=== PATIENT | male | born 2000 | race Caucasian/White ===

== ENCOUNTER 2024-12-07 12:50 | Emergency (ER) | payer MEDICAID ==
[~2024-12-07] VITALS: Ht 170.2 cm; Wt 68.0 kg
[2024-12-07 12:57] VITALS: O2SAT 98
[2024-12-07 13:26] LABS: CLARITY URINE CLEAR (CLEAR); COLOR URINE DARK YELLOW (YELLOW); GLUCOSE URINE NEGATIVE (NEGATIVE); KETONES URINE 2+ (NEGATIVE); LEUKOCYTE ESTERASE URINE NEGATIVE (NEGATIVE); NITRITE URINE NEGATIVE (NEGATIVE); OCCULT BLOOD URINE NEGATIVE (NEGATIVE); PROTEIN URINE 2+ (NEGATIVE); SPECIFIC GRAVITY URINE 1.029 (1.005-1.030)
[2024-12-07 13:42] LABS: BACTERIA URINE NONE SEEN; MUCUS URINE 1+ /lpf (NONE/TRACE); RBC URINE 0-2 /hpf (0-2); SQUAMOUS EPITHELIAL CELL URINE RARE /lpf (RARE/1+); WBC URINE 0-2 /hpf (0-2); YEAST URINE NONE SEEN
[2024-12-07] MEDS: ONDANSETRON 4MG ODT PO ONE (14:09)
[2024-12-07 14:15] LABS: BASOPHILS % 0.3 % (0.0-2.0); EOSINOPHILS % 0.4 % (0.0-5.0); HEMATOCRIT. 50.2 % (42.0-52.0); HEMOGLOBIN. 17.4 g/dL (14.0-18.0); LYMPHOCYTES % 8.4 % (20.0-50.0); MEAN CORPUSCULAR HGB CONC 34.6 g/dL (31.0-37.0); MEAN CORPUSCULAR VOLUME 86.7 fL (80.0-94.0); MEAN PLATELET VOLUME 9.6 fl (7.4-10.4); MONOCYTES % 6.9 % (2.0-8.0); PLATELET 189 x1000/uL (130-400); RED BLOOD CELL COUNT 5.79 mill/uL (4.7-6.1); RED CELL DISTRIBUTION WIDTH 13.4 % (11.6-14.6); WHITE BLOOD COUNT 11.9 x1000/uL (4.5-11.0)
[2024-12-07 14:16] LABS: CHLORIDE 104 mEq/L (98-107); POTASSIUM 3.7 mEq/L (3.5-5.1); SODIUM 142 mEq/L (136-145)
[2024-12-07 14:17] LABS: CARBON DIOXIDE 29 mEq/L (21-32)
[2024-12-07 14:18] LABS: CALCIUM 10.3 mg/dL (8.7-10.4)
[2024-12-07 14:22] LABS: CREATININE 1.1 mg/dL (0.6-1.3); GLUCOSE 99 mg/dL (70-105)
[2024-12-07 14:23] LABS: UREA NITROGEN BLOOD 11 mg/dL (9-23)
[2024-12-07 14:24] LABS: ALANINE AMINOTRANSFERASE 20 IU/L (10-49); ALBUMIN 5.4 g/dL (3.2-4.8); ASPARTATE AMINOTRANSFERASE 19 IU/L (<34)
[2024-12-07 14:25] LABS: BILIRUBIN DIRECT 0.7 mg/dL (<=3.0); BILIRUBIN TOTAL 1.8 mg/dL (0.1-1.0); PROTEIN TOTAL 8.9 g/dL (6.0-8.3)
[2024-12-07] MEDS: SODIUM CHLORIDE 0.9% 500 ML IV ONE (14:43)
[2024-12-07] MEDS ORDERED: ONDA4TAB50 MT (17:55)
[2024-12-07 18:30] VITALS: BP 134/59; PULSE 88; RESP 18; TEMP 37.1; O2SAT 98
[2024-12-07 18:38] VITALS: TEMP 101
[2024-12-07] MEDS: ACETAMINOPHEN 325MG TABLET PO ONE (18:38)
== END 2024-12-07 19:07 | disposition home or self-care (01) ==
LOC: ER 12:50
DX: R11.2 Nausea with vomiting, unspecified (principal); R19.7 Diarrhea, unspecified; Z20.822 Contact with and (suspected) exposure to COVID-19
CPT/HCPCS: 99284; 96360; 76705; 96361; 87426; 80076; 80048; 81003; 83690; 85025; 87804 ×2; 36415; Q0162; J7030